=== PATIENT | male | born 1945 | race Caucasian/White ===

== ENCOUNTER → 2016-12-26 | Outpatient (CLI) | payer MEDICARE, BC ==
--- NOTE | ~2016-12-26 | CST ---
Cardiac Perfusion Imaging Demographics Patient Name MARS Perry Gender Male Patient Number [id number] Race Visit Number [id number] Ethnicity [employer] ID Room Number Accession Number [id number] Height 68 inches Date of 1945 Weight 180 pounds Age 71 year(s) BSA 1.95 m Referring Physician Za Mendez MD BMI 27.37 kg/m Interpreting Physician [place] Date of study 12/26/2016 Radiology Nguyễn Mauro M.D. Supervising /EFRAP Tanesha Vang MD NM Technologist Bonifacio Brooks Ordering Physician Za Mendez MD Stress Jhonathan Khan animal technician Stress ECG Reading Tanesha Vang MD Nurse Jessica Christie Physician Suzanne Walter The procedure was explained in detail to the patient. Risks, complications and alternative treatments were reviewed. Written consent was obtained. Medications Reviewed with Patient prior to Procedure. Procedure Procedure Type: Nuclear Stress Test:Pharmacological, Lexiscan Procedure Start time: 12/26/2016 07:15 Risk Factors The patient risk factors include:former tobacco use and family history of premature CAD. Conclusions Summary Perfusion Images: The overall quality of the study is good. Left ventricular cavity is noted to be normal on the stress and rest studies. There is no evidence of abnormal lung activity. The right ventricle is not visualized and cannot be assessed. Stress SPECT images demonstrate homogenous tracer distribution throughout the myocardium. Rest SPECT images demonstrate homogenous tracer distribution throughout the myocardium. Gated SPECT imaging reveals normal myocardial thickening and wall motion. The left ventricular ejection fraction was calculated to be 53%. Impression 1. Normal myocardial perfusion. 2. Low normal left ventricular systolic function with an ejection fraction of 53 %. Stress Protocols Resting HR:55 bpm Resting BP:148/72 mmHg Stress Protocol:Pharmacologic Predicted HR: 150 bpm Test duration: 06:00 min Reason for termination:Infusion complete ECG Findings Within normal limits. Normal sinus rhythm. Complications Procedure complication: None. Stress Interpretation Appropriate hemodynamic response to Lexiscan. No significant ST-T wave changes with Lexiscan. ECG portion is negative for ischemia by diagnostic criteria. Imaging Results Summed scores - Summed stress score: 0 - Summed rest score: 0 - Summed difference score: 0 Stress ejection Ejection fraction:52 % EDV :113 ml ESV :54 ml Stroke volume :59 ml LV mass :136 gr Imaging Protocols Rest Stress Isotope:Tc99m Myoview IV Isotope: Tc99m Myoview IV Isotope dose:10.5 mCi Isotope dose:31.2 mCi Date:12/26/2016 06:30 Date:12/26/2016 07:30 Technique: SPECT Technique: Gated Supine SPECT Supine Scan Time:30 minutes post injection Scan Time:15-30 minutes post injection Procedure Medications - Regadenoson (Lexiscan) 0.4 mg IV over 10-15 sec. I.V. 0.4 mg. Medications administered per verbal order and read back to physician prior to administration. Medical History Admission Data Admission date: 12/26/2016 Admission Time: 05:57 Hospital Status: Outpatient. Signatures
== END | disposition home or self-care (01) ==
LOC: CARD 05:57
DX: R07.9 Chest pain, unspecified (principal)